=== PATIENT | female | born 1945 | race Two or more races ===

== ENCOUNTER 2025-05-07 09:00 | Day surgery (SDC) | payer OTHER ==
[2025-05-01 13:40] VITALS: BP 162/81
[2025-05-01 13:48] LABS: INR 1.0
[~2025-05-07] VITALS: Ht 160 cm; Wt 76.2 kg
[~2025-05-07 09:00] MED LIST: CARDIZEM CD180 MG PO; CLONAZEPAM1 MG PO; CYMBALTA60 MG PO; DIOVAN HCT 320/1 TA2 PO; DOCUSATE SODIU100 MG PO; GABAPENTIN300 MG PO; GLUMETZA1000 MG PO; IRBESARTAN150 MG; LANTUS SC; MONTELUKAST SODI4 M1; PERCOCET 5/3251 TAB PO; PREVACID 15MG15 MG GT; PROVENTIL0.5 ML/2.5 IH; SYMBICORT 16010.2 GM IH; SYNTHROID50 MCG PO; TOPROL XL25 M1; XYZAL; [UNRECOGNIZED DRUG - OTHER] PO
[2025-05-07] MEDS ORDERED: CEFAZOLIN SODIUM 1,000 MG VIAL ONE (09:03)
[2025-05-07] MEDS ORDERED: GENTAMICIN SULFATE 40 MG/ML VIAL ONE (10:57)
[2025-05-07] MEDS ORDERED: LIDOCAINE HCL 1% 20 ML VIAL IJ ONE (10:58)
[2025-05-07] MEDS ORDERED: CEPHALEXIN750 MG PO (12:26)
[2025-05-07] MEDS ORDERED: TRAM1TAB98 PO (12:27)
== END 2025-05-07 14:50 | disposition home or self-care (01) ==
LOC: CIR.AMB 09:00
PROVIDERS: ATTEND Obstetrics & Gynecology Gynecology
DX: N39.41 Urge incontinence (principal); N32.81 Overactive bladder; R15.9 Full incontinence of feces; Z88.8 Allergy status to other drugs, medicaments and biological substances
CPT/HCPCS: 64581; 64590; 95972; C1767; C1778